=== PATIENT | female | born 1960 | race Caucasian/White ===

== ENCOUNTER 2017-12-15 14:21 | Emergency (ER) | payer OTHER ==
[~2017-12-15] VITALS: Ht 162.6 cm; Wt 106.6 kg
[2017-12-15] MEDS ORDERED: CHILDREN'S ASPI81 M1 PO (14:34)
[2017-12-15] MEDS ORDERED: OMEPRAZOLE 20 M20 MG PO (14:35)
[2017-12-15] MEDS ORDERED: LIPITOR 20 MG T20 M1 PO (14:36)
[2017-12-15] MEDS ORDERED: HYDROXYZINE HCL25 M1 PO (14:36)
[2017-12-15] MEDS ORDERED: PAXIL10 MG PO (14:36)
[2017-12-15] MEDS ORDERED: NAPROSYN500 MG PO (15:45)
[2017-12-15 16:15] VITALS: BP 121/79
== END 2017-12-15 16:17 | disposition home or self-care (01) ==
LOC: M.ERS 14:21
DX: S83.8X2A Sprain of other specified parts of left knee, initial encounter (principal); E66.9 Obesity, unspecified; Z88.6 Allergy status to analgesic agent; Z91.041 Radiographic dye allergy status; Z88.2 Allergy status to sulfonamides; Z68.41 Body mass index [BMI] 40.0-44.9, adult; X50.1XXA Overexertion from prolonged static or awkward postures, initial encounter; Y93.89 Activity, other specified; Y92.89 Other specified places as the place of occurrence of the external cause; Y99.8 Other external cause status